=== PATIENT | male | born 1955 | race Caucasian/White ===

== ENCOUNTER 2016-12-03 18:43 | Emergency (ER) | payer BC ==
[2016-12-03] MEDS ORDERED: IPRATROPIUM/ALBUTEROL 3 ML DEYVIAL IH ONE (19:32)
[2016-12-03] MEDS ORDERED: IBUPROFEN 600 MG TAB PO ONE (19:32)
--- NOTE | 2016-12-03 19:57 | EDPHY ---
H & P Time Seen by Provider: 12/03/16 19:20 HPI/ROS: HPI Cough, congestion. 61-year-old male by private vehicle. He reports having an upper respiratory infection with cough and sore throat for the last 10 days. He reports that he felt better for a couple of days but then his cough returned. He describes it is productive of green/yellow and clear sputum. He described having shortness of breath with a cough. He also reports significant nasal congestion with pressure in his frontal and maxillary sinuses. He denies fever. ROS: Constitutional: No fever, no chills. No weakness. Eyes: No discharge. No changes in vision. ENT: As above. Respiratory: As above. Cardiac: No chest pain, no palpitations. Gastrointestinal: No abdominal pain, no vomiting, no diarrhea. Genitourinary: No hematuria. No dysuria or increased frequency with urination. Musculoskeletal: No back pain. No neck pain. No myalgias or arthralgias. Skin: No rashes. Neurological: No headache. No focal weakness or altered sensation. Past medical history: Denies any significant past medical history. No prescription medications. Social history: Nonsmoker. He is with children. He works as an corporation pilot. Physical Exam: General Appearance: Alert, no distress. This patient is responding to questions appropriately and in full sentences. This patient appears well- hydrated and well-nourished. Eyes: Pupils equal and round no pallor or injection. No lid edema, erythema or injection. ENT, Mouth: Mucous membranes are moist. The pharyngeal tissues are unremarkable. No edema or swelling. No asymmetry suggestive of abscess. No erythema or exudates. Respiratory: There are no retractions, lungs are clear to auscultation with diminished air movement bilaterally and scant rhonchi. No tachypnea. Cardiovascular: Regular rate and rhythm. No murmur. Neurological: Motor sensory function is grossly intact. Cranial nerves are normal. Gait is normal. Skin: Warm and dry, no rashes. Musculoskeletal: Neck is supple and nontender. Extremities are symmetrical. All joints range without pain or impingement. Psychiatric: No agitation. No depression. Database: EKG: Imaging: Chest x-ray PA and lateral; the cardiac mediastinal silhouette is unremarkable. No evidence of infiltrate or pneumothorax. Diffuse airway disease. No other acute cardiopulmonary disease process noted. Interpreted by me. Procedures: Emergency department course: Vital signs reviewed. He is afebrile. Moderately hypertensive. He was given an albuterol/Atrovent nebulizer treatment. He was given 600 mg of ibuprofen. Chest x-ray will be obtained. 8:15 p.m., patient re-evaluated. Resting comfortably at this time. Results of his chest x-ray discussed. I explained that antibiotics are not indicated at this time. Plan will be to treat with nasal steroids, ibuprofen and over-the- counter antitussive medications. He is in agreement. Follow-up was discussed with him. He feels comfortable going home. Return to emergency department precautions reviewed. He and his were both instructed to return to the emergency department if he develops worsening cough, shortness of breath or develops a fever. All of his questions were answered. He was discharged in good condition. Differential Diagnosis: The differential diagnosis on this patient includes but is not limited to bronchitis, upper respiratory infection. Pneumonia, serious bacterial infection , pulmonary embolism unlikely. This represents a partial list of diagnoses considered. These considerations are based on history, physical exam, past history, reassessment and diagnostic testing. Smoking Status: Never smoked Constitutional: Initial Vital Signs Temperature (C) 36.5 C 12/03/16 18:55 Heart Rate 72 12/03/16 18:55 Respiratory Rate 20 12/03/16 18:55 Blood Pressure 165/100 H 12/03/16 18:55 O2 Sat (%) 95 12/03/16 18:55 O2 Delivery Mode Room Air Allergies/Adverse Reactions: No Known Allergies Allergy (Unverified 12/03/16 18:55) Home Medications: Medication Instructions Recorded NK [No Known Home Meds] 12/03/16 Medical Decision Making - Data Points Medications Given: Discontinued Medications Albuterol/Ipratropium (Duoneb) 3 ml IH EDNOW ONE Stop: 12/03/16 19:33 Last Admin: 12/03/16 20:00 Dose: 3 ml Ibuprofen (Motrin) 600 mg PO EDNOW ONE Stop: 12/03/16 19:33 Last Admin: 12/03/16 19:45 Dose: 600 mg Departure - Departure Disposition: Home, Routine, Self-Care Clinical Impression: Bronchitis, Upper respiratory infection, viral Condition: Good Instructions: Upper Respiratory Infection (ED), Acute Bronchitis (ED) Additional Instructions: Read and follow provided instructions. Follow-up with your primary care physician in 1-2 days for re-evaluation. Ibuprofen dosin mg every 6 hours with meals for the next 3 days only. Flonase: 2 sprays to each nostril daily for 3 days then 1 spray to each nostril daily for 5 additional days. Use [id number] NyQuil and DayQuil as directed to help control cough and congestion. Return to the emergency department as discussed for worsening cough, high fever , difficulty breathing or other serious concerns. Referrals: Valentin Ratliff MD [Primary Care Provider] - As per Instructions
[2016-12-03 20:40] VITALS: BP 142/88; PULSE 81; RESP 16; TEMP 98.1; O2SAT 94
== END 2016-12-03 20:42 | disposition home or self-care (01) ==
DX: J40 Bronchitis, not specified as acute or chronic (principal); J06.9 Acute upper respiratory infection, unspecified

== ENCOUNTER → 2017-10-13 | Outpatient (CLI) | payer BC | LOC: BMCIMAGING 16:30 | PROVIDERS: ATTEND Internal Medicine | DX: S92.502A Displaced unspecified fracture of left lesser toe(s), initial encounter for closed fracture (principal); M19.072 Primary osteoarthritis, left ankle and foot ==